=== PATIENT | female | born 1985 | race African-American/Black ===

== ENCOUNTER 2017-07-29 07:17 | Emergency (ER) | payer MEDICAID, OTHER ==
[~2017-07-29] VITALS: Ht 167.6 cm; Wt 91.0 kg
[2017-07-29] MEDS ORDERED: TETANUS, DIPHTHERIA, PERTUSSIS VAC/PF 0.5ML (>7YR OLD) IM ONE (08:15)
[2017-07-29] MEDS ORDERED: IBUPROFEN 600MG TABLET PO ONE (08:15)
[2017-07-29 08:18] VITALS: BP 128/81
[2017-07-29] MEDS ORDERED: SULFAMETHOXAZOLE/TRIMETHOPRIM 800/160MG TABLET PO ONE (08:30)
[2017-07-29] MEDS ORDERED: CEPHALEXIN 500MG CAPSULE PO ONE (08:30)
== END 2017-07-29 09:24 | disposition home or self-care (01) ==
LOC: ER 09:11
DX: L03.012 Cellulitis of left finger (principal)
CPT/HCPCS: 90471; 90715; 99284

== ENCOUNTER 2017-08-01 11:39 | Emergency (ER) | payer OTHER ==
[~2017-08-01] VITALS: Ht 162.6 cm; Wt 89.5 kg
[2017-08-01 11:48] VITALS: BP 110/66
[2017-08-01] MEDS ORDERED: LIDOCAINE HCL 1% 20ML VIAL (Pyxis) INJ MC ONE (12:00)
[2017-08-01] MEDS ORDERED: LIDOCAINE HCL/PF 1% 10 MG/ML 5ML VIAL IJ ONE (12:15)
[2017-08-01] MEDS ORDERED: ACETAMINOPHEN 325MG TABLET PO ONE (12:30)
[2017-08-01] MEDS ORDERED: CEFTRIAXONE SODIUM 1 G/VIAL IM ONE (13:15)
[2017-08-01] MEDS ORDERED: KETOROLAC 30MG/ML VIAL IV ONE (13:15)
== END 2017-08-01 13:49 | disposition home or self-care (01) ==
LOC: ER 11:39
DX: L03.011 Cellulitis of right finger (principal); R03.0 Elevated blood-pressure reading, without diagnosis of hypertension
CPT/HCPCS: 10060; 96372; 96374; 99284; J0696; J1885; J3490; Z7610

== ENCOUNTER 2019-04-22 12:47 | Emergency (ER) | payer OTHER ==
[~2019-04-22] VITALS: Ht 167.6 cm; Wt 84.0 kg
[2019-04-22 13:01] VITALS: BP 147/95
== END 2019-04-22 15:15 | disposition left against medical advice (07) ==
LOC: ER 12:47
DX: R05 Cough (principal); R04.0 Epistaxis; I10 Essential (primary) hypertension
CPT/HCPCS: 99282